=== PATIENT | male | born 1965 | race Caucasian/White ===

== ENCOUNTER → 2020-06-08 12:21 | Outpatient (CLI) | payer MEDICAID, SELFPAY ==
--- NOTE | 2020-06-08 12:28 | XR_ITS ---
PROCEDURE: XR SHOULDER RT MIN 2V CLINICAL INDICATION: right shoulder pain COMPARISON: MR MRI SHOULDER RT W/O CONT from 05/09/2020 FINDINGS: No fracture or dislocation. No lytic or blastic change. There is normal mineralization. The joint spaces are well preserved. Other findings:None. IMPRESSION: Negative right shoulder Dictated by: Heron Hills MD 06/08/2020 15:16 Heron Hills MD in [place] 06/08/2020 15:16
== END ==
PROVIDERS: PCP Family Medicine; Visit Provider Orthopaedic Surgery
DX: M25.511 Pain in right shoulder (principal)
CPT/HCPCS: 73030

== ENCOUNTER 2020-06-15 15:00 | Outpatient (RCR) | payer MEDICAID, SELFPAY | END 2020-06-15 15:47 | disposition home or self-care (01) | LOC: OT 15:00 | PROVIDERS: Visit Provider Orthopaedic Surgery | DX: G56.01 Carpal tunnel syndrome, right upper limb (principal) | CPT/HCPCS: 97763 ==

== ENCOUNTER → 2020-08-22 12:41 | Outpatient (CLI) | payer MEDICAID, SELFPAY ==
--- NOTE | 2020-08-22 12:52 | XR_ITS ---
PROCEDURE: XR CHEST 2V CLINICAL HISTORY: hypertension; preop; surgery 09/01/20 COMPARISON: No exams were available for comparison FINDINGS: The cardiomediastinal silhouette and pulmonary vascularity are within normal limits. COPD changes. No lobar consolidation or collapse. No acute bony abnormalities. IMPRESSION: COPD, no acute finding Dictated by: Heron Hills MD 08/22/2020 16:52 Heron Hills MD in [place] 08/22/2020 16:52
--- NOTE | 2020-08-22 13:47 | ECG_ITS ---
APPROVED REPORT Exam: Resting ECG HR:74 bpm ECG Measurements Heart Rate 74 AXES ID 144 P 57 QRSd 86 QRS 78 QT 416 T 35 QTc 461 Conclusion Normal sinus rhythm T wave abnormality, consider lateral ischemia Prolonged QT Abnormal ECG Electronically signed by : Chintan Cortez, 08/22/2020 14:58:58
== END ==
PROVIDERS: PCP Family Medicine; Visit Provider Orthopaedic Surgery
DX: Z01.810 Encounter for preprocedural cardiovascular examination (principal); M75.110 Incomplete rotator cuff tear or rupture of unspecified shoulder, not specified as traumatic
CPT/HCPCS: 71046; 93005

== ENCOUNTER → 2020-08-22 13:27 | Outpatient (CLI) | payer MEDICAID, SELFPAY ==
[2020-08-22 13:55] LABS: Basophils # 0.1 K/mm3 (0-0.2); Basophils % 0.4 % (0.1-2.0); Eosinophils # 0.2 K/mm3 (0.0-0.4); Eosinophils % 1.5 % (0.1-12.0); Hematocrit 46.2 % (42.0-52.0); Hemoglobin 15.1 g/dL (14.1-18.0); Lymphocytes # 2.5 K/mm3 (0.7-4.5); Lymphocytes % 23.9 % (10-50); Mean Corpuscular HGB Conc 32.6 g/dL (31.8-35.4); Mean Corpuscular Hemoglobin 29.8 pg (27.0-31.2); Mean Corpuscular Volume 91.4 fl (80-94); Mean Platelet Volume 7.8 fl (7.4-10.4); Monocytes # 0.6 K/mm3 (0.1-1.0); Monocytes % 6.1 % (1.7-9.3); Neutrophils # 7.2 K/mm3 (1.8-7.8); Neutrophils % 68.1 % (37.0-80.0); Platelet Count 321 K/mm3 (142-424); Red Blood Count 5.05 M/mm3 (4.60-6.20); Red Cell Distribution Width 13.1 % (11.5-17.5); White Blood Count 10.5 K/mm3 (4.8-10.8)
[2020-08-22 14:12] LABS: Chloride 108 mmol/L (98-107); Potassium 4.2 mmoL/L (3.5-5.1); Sodium 142 mmol/L (136-145)
[2020-08-22 14:14] LABS: Blood Urea Nitrogen 12 mg/dl (9-20); Estimated Glomerular Filt Rate 69 ml/min (>60); GFR (African American) 84 ML/MIN (>60)
[2020-08-22 14:15] LABS: Alanine Aminotransferase 10 U/L (12-78); Albumin Level 4.5 g/dl (3.5-5.0); Albumin/Globulin Ratio 1.6 (1.1-1.8); Alkaline Phosphatase 107 U/L (38-126); Anion Gap 10.2 mEq/L (5-15); Aspartate Amino Transferase 24 U/L (17-59); Bilirubin,Total 0.6 mg/dl (0.2-1.3); Calcium 9.9 mg/dl (8.4-10.2); Carbon Dioxide 28 mmol/L (22.0-30.0); Globulin 2.9 g/dL (1.3-3.2); Glucose 111 mg/dl (74-100); Total Protein,Serum 7.4 g/dl (6.3-8.2)
== END ==
PROVIDERS: Visit Provider Orthopaedic Surgery
DX: Z01.818 Encounter for other preprocedural examination (principal); M75.111 Incomplete rotator cuff tear or rupture of right shoulder, not specified as traumatic
CPT/HCPCS: 80053; 85025

== ENCOUNTER → 2020-08-30 14:21 | Outpatient (CLI) | payer MEDICAID, SELFPAY ==
[2020-08-30 17:05] LABS: Coronavirus 19 IgG Antibody Negative (Negative); Coronavirus 19 IgM Antibody Negative (Negative)
== END ==
PROVIDERS: Visit Provider Orthopaedic Surgery
DX: Z01.818 Encounter for other preprocedural examination (principal); Z20.822 Contact with and (suspected) exposure to COVID-19; M67.911 Unspecified disorder of synovium and tendon, right shoulder; M75.110 Incomplete rotator cuff tear or rupture of unspecified shoulder, not specified as traumatic
CPT/HCPCS: 36415; 86328

== ENCOUNTER 2020-09-01 06:06 | Day surgery (SDC) | payer MEDICAID, SELFPAY ==
[2020-08-25 14:01] VITALS: BMI 25.1
[2020-09-01] VITALS (11 sets, daily range): BP systolic 166–204; BP diastolic 60–121; PULSE 70–100; RESP 12–18; TEMP 36.3–43; O2SAT 93–97
--- NOTE | 2020-09-01 07:23 | HMH.ANESCL ---
[facility] Anesthesia Checklist - Structural Data Admitted From: Home Planned Operative Procedure/s: r shoulder arthroscopy Consent for Planned Operative Procedure(s) Verified: Yes - Additional verifications Anesthesia Reactions: No Hx Blood Transfusions: No Blood Transfusion Reaction: No - Airway Assessment C-Spine Mobility Assessed: Yes TMJ Mobility Assessed: Yes Dentition: Good Dentition - Neurological Assessment Level of Consciousness: Awake, Alert, Appropriate - Anesthesia Plan Anesthesia Risk discussed: Yes Anesthesia Plan: Verified ASA Class: II Anesthesia Type: General w/block - Preoperative Comments Pre-Operative Comments: BP block exp to pt incl risks, pt agrees to proceed [facility] History I have reviewed the patient's past medical history: Yes Medical History: Reports:: Hypertension Denies:: Cancer, Diabetes Mellitus Type 1, Diabetes Mellitus Type 2, Internal Pacemaker, MRSA, Seizures *Have you ever received a pneumonia vaccine?: No *Have you received a flu vaccine this season?: No Other Medical History: Reports: Arthritis. Denies: Blood Transfusion Reaction Anesthesia experience/problems:: none Laterality Cases: Bilateral: Arthroscopy Shoulder, Other Other Surgeries: Yes: Cholecystectomy, Colonoscopy, Hernia Repair. No: Pacemaker Amputation: No Fractures: No - *Social History Last grade of school completed: High school graduate Smoking Status: Current every day smoker Tobacco Type: cigarettes # Packs/Day (cigarettes): 2 Alcohol Intake: current Alcohol Intake Frequency:: holidays/special occasions only Substance Use Type: denies use *Occupational Status:: unemployed Housing: house Household Members: spouse *Travel in the last 8 weeks: None Family Hx:: Asthma, Cancer, Alcoholism
--- NOTE | 2020-09-01 12:55 | P.PN_ITS ---
[facility] Anesthesia Record Part I Intake, IV Amount: 2,000 Estimated blood loss (mL): 50 Urine output (mL): 450 Blood Pressure: 177/60 SaO2: 94 Pulse Rate: 100 Respiratory Rate: 12 Temperature: 97.8 F Patient is:: Awake, Stable Stable to PACU at:: 12:50
[2020-09-01 14:39] LABS: Microscopic,Cath URINE MICROSCOPIC (MICROSCOPIC)
[2020-09-01 14:47] LABS: Appearance,Urine/Cath CLEAR (Clear); Bilirubin,Cath Negative (Negative); Blood, Urine/Cath Negative (Negative); Color,Urine/Cath YELLOW (Yellow); Glucose,Urine/Cath (UA) Negative (Negative); Ketones,Urine/Cath Negative (Negative); Leukocyte Esterase,Cath Negative (Negative); Nitrate,Cath Negative (Negative); Protein,Urine/Cath Negative (Negative); Specific Gravity, Urine/Cath 1.015 (1.005-1.030); Urobilinogen,Cath 0.2 EU/dl (0.2)
[2020-09-01 14:55] LABS: Bacteria,Urine/Cath TRACE /lpf; WBC,Urine/Cath Occasional #/hpf (0-3)
--- NOTE | 2020-09-01 14:55 | HMH.OPNOTE ---
Date of procedure: 09/01/20 Pre-op Diagnosis:: 1. Partial-thickness rotator cuff tear RIGHT shoulder 2. Biceps tendinopathy RIGHT shoulder 3. Subacromial bursitis RIGHT shoulder 4. Subacromial impingement RIGHT shoulder 5. Acromioclavicular joint arthritis RIGHT shoulder Post-op Diagnosis:: 1. High-grade partial-thickness rotator cuff tear RIGHT shoulder-involving the supraspinatus tendon and anterior part of the infraspinatus tendon. 2. Biceps tendinopathy RIGHT shoulder 3. Subacromial bursitis RIGHT shoulder 4. Subacromial impingement RIGHT shoulder 5. Degenerative labrum and synovitis RIGHT glenohumeral joint 6.? Glenohumeral arthritis RIGHT shoulder 7. AC joint arthritis RIGHT shoulder Procedure performed:: 1. Arthroscopic rotator cuff repair, RIGHT shoulder. 2. Arthroscopic subacromial decompression with subacromial and subdeltoid bursectomy and bony acromioplasty, RIGHT shoulder. 3. Arthroscopic glenohumeral joint debridement, extensive, RIGHT shoulder. 4.? Arthroscopic biceps tenodesis, RIGHT shoulder 5. Arthroscopic distal clavicle excision, RIGHT shoulder Surgeon:: Reed Kolb MD Family Worker(s):: Luann Shay SPIRAL GEAR GENERATOR:: Wallace Sanchez Anesthesia: GETA, regional (Interscalene nerve block) Estimated blood loss (mL): 5 Clinical Note:: Patient is a pleasant 55-year-old [id number] gentleman with history of pain and disability in his RIGHT shoulder for a long time. He had weakness and difficulty with the use of the arm. Preoperative evaluation was consistent with the above mentioned diagnosis. After discussion of the risks and benefits of the surgical versus nonsurgical management, he elected to proceed with surgical remediation. Please refer to my office note for full details. Operative findings:: There was a high-grade partial-thickness tear involving most of the supraspinatus tendon and anterior part of infraspinatus tendon. The biceps tendon showed synovitis in the biceps groove. At the time of arthroscopic tenodesis marked synovitis and partial thickness tear was noted in the extra-articular part of the biceps tendon. The labrum was frayed all around but not detached. The pouch and rotator interval were synovitic. The articular surface of the humerus and glenoid both had minor grade 2 degenerative changes. There was extensive subacromial and subdeltoid bursitis and the acromion and AC joint had undersurface spurring. Operative note:: On the day of the procedure, the patient was met and positively identified in the preoperative area; the surgical site was marked and initialed by me. I have again reviewed the clinical, x- ray and MRI findings with the patient. We had a detailed discussion about the diagnosis, implications of it, natural history and management options including both nonsurgical and surgical options for the shoulder.? Patient has decided to proceed with surgery as planned - the proposed surgery includes arthroscopic/open glenohumeral joint examination and debridement as appropriate, subacromial decompression with bony acromioplasty, rotator cuff repair as needed and biceps tenodesis.? Nonsurgical alternatives explained as well which in his case would be rest, activity modification, local ice and heat as appropriate, physical therapy, local steroid injections, nonsteroidal anti-inflammatory drugs and other effective pain management measures. I told the patient that there were no guarantees with surgery; he could be no better or even worse. The complications discussed include but are not limited to infection, injury to nerves, blood vessels and tendons/ligaments, bleeding, continued symptoms, ectopic calcification, reactive bursitis, adhesive capsulitis, shoulder stiffness, chondrolysis, failure of the tendon to heal, tendon re-rupture, implant failure, likely need for further surgery, reaction to anesthetic with damage to the heart, lungs, brain, and even .? We discussed possible screw site pain with tenodesis and the
[2020-09-02 10:42] VITALS: BP 179/103; PULSE 91; TEMP 36.3
--- NOTE | 2020-09-02 10:42 | P.PN_ITS ---
[facility] Anesthesia Record Part II Discharge Time: 13:00 Destination: Surgical Day Care (OP Surgery) PACU nurse assessment reviewed?: Yes Patient Condition:: Good Anesthesia Complications:: None Swallowing reflex intact?: Yes Cyanosis?: No Blood Pressure: 179/103 Pulse Rate: 91 Temperature: 97.4 F Mental Status: Alert & Oriented Pain level:: 0 Nausea and/or vomitting:: None Intake, IV Amount: 0
== END 2020-09-01 14:16 | disposition home or self-care (01) ==
PROVIDERS: PCP Family Medicine; Visit Provider Orthopaedic Surgery
PROC: (CPT 29805; principal; 2020-09-01 07:30)
DX: M75.111 Incomplete rotator cuff tear or rupture of right shoulder, not specified as traumatic (principal); M75.41 Impingement syndrome of right shoulder; M75.21 Bicipital tendinitis, right shoulder; M25.511 Pain in right shoulder; G89.29 Other chronic pain; M75.51 Bursitis of right shoulder
CPT/HCPCS: 29827; 29828; 29826; 81001; 96374; C1713; J2405

== ENCOUNTER → 2020-11-22 10:30 | Outpatient (CLI) | payer MEDICAID, SELFPAY ==
--- NOTE | 2020-11-22 10:32 | XR_ITS ---
PROCEDURE: XR SHOULDER RT MIN 2V CLINICAL INDICATION: sp RT shoulder scope sx 09/01/20 COMPARISON: MR MRI SHOULDER RT W/O CONT from 05/09/2020 CR XR SHOULDER RT MIN 2V from 06/08/2020 FINDINGS: There are postsurgical changes present with the lucency in the proximal aspect of the humerus laterally consistent with bicipital transfer. There are 2 anchor screws in the humeral head and there is some cortical regularity of the humeral at the greater tuberosity consistent which may be related to the interval surgery. There has been osteotomy at the AC joint with widening of the joint space. No acute fracture or dislocation. IMPRESSION: Postsurgical changes as described above Dictated by: Heron Hills MD 11/22/2020 11:15 Heron Hills MD in [place] 11/22/2020 11:15
== END ==
PROVIDERS: PCP Family Medicine; Visit Provider Orthopaedic Surgery
DX: Z09 Encounter for follow-up examination after completed treatment for conditions other than malignant neoplasm (principal); Z98.890 Other specified postprocedural states; M25.511 Pain in right shoulder
CPT/HCPCS: 73030

== ENCOUNTER → 2021-03-21 16:34 | Outpatient (CLI) | payer MEDICAID, SELFPAY ==
--- NOTE | 2021-03-21 16:37 | XR_ITS ---
PROCEDURE: XR SHOULDER RT MIN 2V CLINICAL INDICATION: rt shoudler pain, sx 09/01/20 COMPARISON: CR XR SHOULDER RT MIN 2V from 06/08/2020 CR XR SHOULDER RT MIN 2V from 11/22/2020 FINDINGS: No fracture or dislocation. No lytic or blastic change. There is normal mineralization. There are postsurgical changes with 2 anchor screws in the humeral head and a lucency from bicipital tendon transfer and the proximal aspect of the right humerus. No subacromial stenosis Other findings:None. IMPRESSION: Postsurgical changes, no acute finding with no significant change Dictated by: Heron Hills MD 03/21/2021 17:15 Heron Hills MD in [place] 03/21/2021 17:15
== END ==
PROVIDERS: PCP Family Medicine; Visit Provider Orthopaedic Surgery
DX: Z09 Encounter for follow-up examination after completed treatment for conditions other than malignant neoplasm (principal); Z98.890 Other specified postprocedural states
CPT/HCPCS: 73030

== ENCOUNTER → 2021-04-08 09:18 | Outpatient (CLI) | payer MEDICAID, SELFPAY ==
--- NOTE | 2021-04-08 09:18 | MR_ITS ---
PROCEDURE INFORMATION: Exam: MR Right Upper Extremity Joint Without and With Contrast; Shoulder Exam date and time: 04/08/2021 9:18 AM Age: 55 years old Clinical indication: Pain; Shoulder; Right; Prior surgery; Surgery date: 6+ months; Additional info: Sp RT shoulder SX 09/01/20. Prior shoulder surgery 09-01-20. Weakness and limited rom in arm. No injury or trauma. Shoulder pain. 17ml prohance given. Lot: [id number] exp: Dec 2022 prior x-ray 03-21-21 TECHNIQUE: Imaging protocol: MR of the Right upper extremity without and with contrast. Exam focused on the shoulder. Contrast material: PROHANCE; Contrast volume: 17 ml; Contrast route: IV; COMPARISON: MRI SHOULDER RT W/O CONT 05/09/2020 10:39 AM FINDINGS: Bones/joints: No acute fracture. Mild degenerative changes of acromioclavicular joint. No dislocation. Anchors within humeral head. Fluid: Contrast within glenohumeral joint, communicating with subacromial-subdeltoid bursa. Glenoid labrum: Degenerative-type tear of superior labrum. Supraspinatus tendon: Severe tendinosis. Full-thickness tear of posterior tendon, approximately 1 cm in width with retraction. Infraspinatus tendon: Severe tendinosis. Full-thickness tear of anterior tendon, approximately 1 cm in width with retraction. Subscapularis tendon: Mild tendinosis. No definite tear. Teres minor tendon: No definite tear. Tendon of biceps brachii: Probable biceps tenodesis. Glenohumeral ligaments: Grossly intact the the the the the is the she the the. Muscles: Unremarkable. Soft tissues: Unremarkable. IMPRESSION: Rotator cuff tendinosis with full-thickness tear.
== END ==
PROVIDERS: PCP Family Medicine; Visit Provider Orthopaedic Surgery
DX: Z98.890 Other specified postprocedural states (principal)
CPT/HCPCS: 73223; A9576